=== PATIENT | female | born 1960 | race African-American/Black ===

== ENCOUNTER 2017-08-01 17:00 | Emergency (ER) | payer BC ==
[~2017-08-01] VITALS: Ht 160 cm; Wt 95.3 kg
--- NOTE | ~2017-08-01 | EKG ---
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
[2017-08-01] MEDS ORDERED: METFORMIN HCL500 MG PO (18:28)
[2017-08-01] MEDS ORDERED: CYCLOBENZAPRINE5 MG PO (18:29)
[2017-08-01] MEDS ORDERED: TRAMADOL 50 MG50 MG PO (18:29)
[2017-08-01 18:42] LABS: EOSINOPHILS 2.5 % (0.0-3.0); HEMATOCRIT 32.9 % (37.0-47.0); HEMOGLOBIN 10.3 gm/dL (12.0-15.0); LYMPHOCYTES 22.7 % (24.0-44.0); MCH 21.2 pg (26.0-34.0); MCHC 31.3 g/dL (28.0-37.0); MCV 67.8 fL (80.0-100.0); MONOCYTES 5.5 % (1.0-8.0); PLATELET COUNT 420 thou/uL (150-400); POLYS 68.3 % (36.0-66.0); RBC 4.85 mil/uL (4.20-5.00); RDW 18.6 % (10.5-14.5); WBC 8.7 thou/uL (4.0-11.0)
[2017-08-01 18:50] LABS: ANION GAP 10 mmol/L (7-16); BUN 21 mg/dL (7-18); CALCIUM 9.4 mg/dL (8.5-10.1); CHLORIDE 104 mmol/L (98-107); CO2 26 mmol/L (21-32); CREATININE 0.9 mg/dL (0.6-1.0); GLUCOSE 154 mg/dL (74-106); POTASSIUM 4.1 mmol/L (3.5-5.1); SODIUM 140 mmol/L (136-145)
[2017-08-01 18:54] LABS: ALBUMIN 3.3 g/dL (3.4-5.0); SGOT 19 U/L (15-37); SGPT 26 U/L (30-65)
[2017-08-01 19:08] LABS: TOTAL BILIRUBIN 0.2 mg/dL (<0.1-1.0); TOTAL PROTEIN 8.4 g/dL (6.4-8.2); TROPONIN-I < 0.04 ng/mL (<0.06)
[2017-08-01 19:21] LABS: ANISOCYTOSIS 2+; BURR CELLS OCCASIONAL; MICROCYTES 2+
== END 2017-08-01 19:35 | disposition home or self-care (01) ==
LOC: ER 17:00
PROVIDERS: Emergency Medicine
DX: R07.89 Other chest pain (principal)

== ENCOUNTER 2018-01-08 14:28 | Emergency (ER) | payer BC ==
[~2018-01-08] VITALS: Ht 160 cm; Wt 86.2 kg
--- NOTE | ~2018-01-08 | EKG ---
[address] [place] [address] ELECTROCARDIOGRAM REPORT Name: OG COSME Room #: [facility] Lelo#: [id number] Admission: 01/08/18 Attend Phys: Discharge: 01/08/18 Date of : 60 Report #: [id number] THIS REPORT FOR: //name// 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
[~2018-01-08 14:28] MED LIST: CYCLOBENZAPRINE5 MG PO; METFORMIN HCL500 MG PO; TRAMADOL 50 MG50 MG PO
[2018-01-08 15:38] LABS: HEMATOCRIT 32.3 % (37.0-47.0); MCH 20.6 pg (26.0-34.0); MCV 66.6 fL (80.0-100.0); RBC 4.85 mil/uL (4.20-5.00); RDW 19.1 % (10.5-14.5); WBC 10.4 thou/uL (4.0-11.0)
[2018-01-08 15:44] LABS: ANION GAP 9 mmol/L (7-16); BUN 14 mg/dL (7-18); CALCIUM 9.1 mg/dL (8.5-10.1); CHLORIDE 103 mmol/L (98-107); CO2 24 mmol/L (21-32); CREATININE 0.9 mg/dL (0.6-1.0); GLUCOSE 129 mg/dL (74-106); POTASSIUM 4.1 mmol/L (3.5-5.1); SODIUM 136 mmol/L (136-145)
[2018-01-08 15:53] LABS: ALBUMIN 3.4 g/dL (3.4-5.0); SGOT 25 U/L (15-37); SGPT 30 U/L (30-65); TOTAL BILIRUBIN 0.2 mg/dL (<0.1-1.0); TOTAL PROTEIN 7.9 g/dL (6.4-8.2); TROPONIN-I <0.06 ng/mL (<0.06)
[2018-01-08 16:25] VITALS: BP 130/74
== END 2018-01-08 16:26 | disposition home or self-care (01) ==
LOC: ER 14:28
PROVIDERS: Emergency Medicine
DX: R00.2 Palpitations (principal); M54.30 Sciatica, unspecified side